=== PATIENT | female | born 1950 | race Caucasian/White ===

== ENCOUNTER 2023-07-26 14:12 | Outpatient (CLI) | payer MEDICARE, OTHER | END 2023-07-26 14:13 | disposition home or self-care (01) | LOC: SCSMRI 14:12 | PROVIDERS: ATTEND Orthopaedic Surgery | DX: M47.26 Other spondylosis with radiculopathy, lumbar region (principal); M47.817 Spondylosis without myelopathy or radiculopathy, lumbosacral region; M47.815 Spondylosis without myelopathy or radiculopathy, thoracolumbar region; Z98.1 Arthrodesis status | CPT/HCPCS: 72148 ==

== ENCOUNTER 2024-03-08 14:40 | Outpatient (CLI) | payer MEDICARE, OTHER | END 2024-03-08 14:41 | disposition home or self-care (01) | LOC: SCSRAD 14:40 | PROVIDERS: ATTEND Orthopaedic Surgery | DX: M54.50 Low back pain, unspecified (principal); Z96.7 Presence of other bone and tendon implants; M41.86 Other forms of scoliosis, lumbar region | CPT/HCPCS: 72100 ==